=== PATIENT | male | born 1980 | race Caucasian/White ===

== ENCOUNTER 2018-02-08 13:29 | Emergency (ER) | payer SELFPAY ==
[~2018-02-08] VITALS: Ht 167.6 cm; Wt 89.8 kg
[2018-02-08 13:50] VITALS: BP 109/72
--- NOTE | 2018-02-08 14:00 | NUR ---
37 yo m bib self with c/o left ankle/foot pain s/p "twisting ankle on a rock" yesterday. Swelling and ecchymosis noted to left ankle and foot. Cap refill < 3 seconds and pulses +2 to left foot. 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 pt aaox4, gcs 15, cms intact, rr even and unlabored, lungs clear. abd soft, non-tender. bowel sounds active x 4. ambulatory w/ steady gait. will continue to monitor. pt needs met. er md aware of pt status. safty precautions in place.
--- NOTE | 2018-02-08 14:01 | NUR ---
pt taken to xray via w/c accompanied by technical operations manager. report given to Marizol CRUZ.
[2018-02-08] MEDS ORDERED: traMADol 50 MG TAB PO ONE (14:15)
[2018-02-08] MEDS ORDERED: IBUPROFEN 600 MG TAB PO ONE (14:15)
--- NOTE | 2018-02-08 14:35 | NUR ---
pt resting comfortably in [facility] at this time w/ vss and rr even and unlabored. safety precautions in place, will continue to monitor.
--- NOTE | 2018-02-08 15:10 | NUR ---
emt at bedside at this time performing crutch training. pt verbalizes understanding and demonstrates proper crutch use w/o incident.
[2018-02-08 15:38] VITALS: BP 111/72
--- NOTE | 2018-02-08 15:38 | NUR ---
Patient discharged with v/s stable. Written and verbal after care instructions given and explained. Patient alert, oriented and verbalized understanding of instructions. Ambulatory with steady gait on crutches. All questions addressed prior to discharge. ID band removed. Patient advised to follow up with PMD. Rx of Toradol given. Patient educated on indication of medication including possible reaction and side effects. Opportunity to ask questions provided and answered.
== END 2018-02-08 15:38 | disposition home or self-care (01) ==
LOC: MED 13:29
DX: S93.402A Sprain of unspecified ligament of left ankle, initial encounter (principal); W50.2XXA Accidental twist by another person, initial encounter; Y93.89 Activity, other specified; Y92.89 Other specified places as the place of occurrence of the external cause; Y99.8 Other external cause status
CPT/HCPCS: 73610; 73630; 99284

== ENCOUNTER 2020-04-29 11:07 | Emergency (ER) | payer MEDICAID ==
[~2020-04-29] VITALS: Ht 167.6 cm; Wt 102.1 kg
[2020-04-29 11:10] VITALS: BP 127/66
[2020-04-29] MEDS ORDERED: HYDR-5122 PO (11:19)
--- NOTE | 2020-04-29 11:28 | NUR ---
PATIENT PRESENTS TO ED WITH CHEST AND UPPER BACK PAIN SINCE MONDAY. PT STATES PAIN IS ALL OVER ABD AND RADIATES TO BACK. PT TOOK NORCO THIS MORNING BUT NOW PAIN HAS RETURNED. PAIN IS WORSE IF WALKING, SITTING OR LAYING ON LEFT SIDE. DENIES N/V/D; SKIN IS PINK/WARM/DRY; AAOX4 WITH EVEN AND STEADY GAIT; LUNGS CLEAR BL; HR EVEN AND REGULAR; PT DENIES ANY FEVER, CP, SOB, OR COUGH AT THIS TIME; PATIENT STATES PAIN OF 6/10 AT THIS TIME; VSS; PATIENT POSITIONED FOR COMFORT; HOB ELEVATED; BEDRAILS UP X2; BED DOWN. ER MD MADE AWARE OF PT STATUS.
--- NOTE | 2020-04-29 11:38 | NUR ---
RAD AT BEDSIDE
[2020-04-29] MEDS ORDERED: KETOROLAC 30 MG/ML VIAL IVP ONE (11:50)
--- NOTE | 2020-04-29 12:02 | NUR ---
Candida villalpando in EDM - 04/29/20 at 1202 by [facility] IV removed, catheter intact and site benign. Applied folded 4x4 gauze and tape to stop bleeding.
--- NOTE | 2020-04-29 12:02 | NUR ---
Ultrasound at bedside.
[2020-04-29 12:08] LABS: BASOPHILS % (AUTO) 0.6 % (0.0-2.0); EOSINOPHILS % (AUTO) 0.7 % (0.0-4.0); HEMATOCRIT 45.1 % (36-52); HEMOGLOBIN 15.6 g/dL (12.0-18.0); LYMPHOCYTES # (AUTO) 1.5 K/uL (2.0-11.5); LYMPHOCYTES % (AUTO) 24.7 % (20.5-51.1); MEAN CORPUSCULAR HEMOGLOBIN 32 pg (27-31); MEAN CORPUSCULAR HGB CONC 35 g/dL (33-37); MEAN CORPUSCULAR VOLUME 92.1 fL (80-94); MONOCYTES # (AUTO) 0.7 K/uL (0.8-1.0); NEUTROPHILS # (AUTO) 3.7 K/uL (1.8-7.7); PLATELET COUNT (AUTO) 217 K/uL (140-450); RED CELL DISTRIBUTION WIDTH 13.1 % (11.6-13.7)
[2020-04-29 12:27] LABS: CARBON DIOXIDE 22.5 mmol/L (21-32); CREATININE 1.2 mg/dL (0.6-1.3); POTASSIUM 3.5 mmol/L (3.5-5.1)
[2020-04-29 12:32] LABS: ALBUMIN 3.9 g/dL (3.4-5.0); TOTAL BILIRUBIN 0.3 mg/dL (0.0-1.0)
[2020-04-29 12:47] LABS: APPEARANCE,URINE CLEAR (CLEAR); BILIRUBIN,URINE NEGATIVE (NEGATIVE); BLOOD, URINE TRACE-I (NEGATIVE); COLOR,URINE YELLOW (YELLOW); LEUKOCYTE ESTERASE ,URINE NEGATIVE (NEGATIVE); NITRITE, URINE NEGATIVE (NEGATIVE); UGLUCOSE NEGATIVE (NEGATIVE)
[2020-04-29 12:51] LABS: RBC,URINE 0-5 /HPF (0-5); WBC,URINE 0-5 /HPF (0-5)
[2020-04-29 13:36] VITALS: BP 110/62
--- NOTE | 2020-04-29 13:36 | NUR ---
Patient discharged with v/s stable. Written and verbal after care instructions given and explained. Patient alert, oriented and verbalized understanding of instructions. Ambulatory with steady gait. All questions addressed prior to discharge. ID band removed. Patient advised to follow up with PMD. Rx of OMEPRAZOLE given. Patient educated on indication of medication including possible reaction and side effects. Opportunity to ask questions provided and answered.
== END 2020-04-29 13:36 | disposition home or self-care (01) ==
LOC: MED 11:07
DX: R10.9 Unspecified abdominal pain (principal); F17.200 Nicotine dependence, unspecified, uncomplicated; Z79.899 Other long term (current) drug therapy
CPT/HCPCS: 36415; 71045; 76705; 80053; 81001; 83690; 84484; 85025; 93005; 96374; 99285; J1885